=== PATIENT | female | born 1945 | race Hispanic/Latino ===

== ENCOUNTER → 2018-06-14 | Day surgery (SDC) | payer MEDICARE ==
[2018-06-12 14:26] LABS: BASOPHILS # (AUTO) 0.1 (0.0-0.1); EOSINOPHILS # (AUTO) 0.2 (0.0-0.4); EOSINOPHILS % 3.1 % (0.0-6.0); HEMATOCRIT 40.1 % (34.2-44.1); HEMOGLOBIN 13.2 g/dL (12.0-16.0); LYMPHOCYTES # (AUTO) 2.9 (1.0-3.2); LYMPHOCYTES % 40.8 % (18.0-39.1); MEAN CORPUSCULAR HEMOGLOBIN 31.2 pg (28-32); MEAN CORPUSCULAR HGB CONC 32.9 g/dL (31-35); MEAN CORPUSCULAR VOLUME 94.8 fL (81-99); MONOCYTES # (AUTO) 0.7 (0.2-0.8); MONOCYTES % 9.2 % (4.4-11.3); NEUTROPHILS # (AUTO) 3.2 (2.1-6.9); NEUTROPHILS % 45.6 % (38.7-80.0); PLATELET COUNT 180 x10e3/uL (140-360); RED BLOOD COUNT 4.23 x10e6/uL (3.6-5.1); RED CELL DISTRIBUTION WIDTH 14.2 % (11.7-14.4)
--- NOTE | 2018-06-12 14:46 | Diagnostic Imaging Report ---
EXAMINATION: CHEST 2 VIEWS INDICATION: Pre-op. COMPARISON: None FINDINGS: TUBES and LINES: None. LUNGS: Lungs are well inflated. There is mild patchy left basilar opacity, likely atelectasis. There is no evidence of pneumonia or pulmonary edema. PLEURA: No pleural effusion or pneumothorax. HEART AND MEDIASTINUM: The cardiomediastinal silhouette is unremarkable. There are atherosclerotic calcifications within the aorta. BONES AND SOFT TISSUES: No acute osseous abnormality. UPPER ABDOMEN: No free air under the diaphragm. IMPRESSION: No acute radiographic abnormality. Signed by: Dr. Pattie Zavala MD on 06/12/2018 2:43 PM
[~2018-06-14] MED LIST: ATORVASTATIN CA10 MG PO; CALTRATE 600 W1 EACH PO; CEFTRIAXONE SOD 1 GM/NS 50 ML 50 ML IV ONE; DEXAMETHASONE SOD PHOS INJ 4 MG/ML VIAL ONE; DORZOLAMIDE-TIM10 ML; FENTANYL CITRATE/PF 100MCG/2 ML INJ ONE; FOLIC ACID1 MG PO; GLUCOSAMINE1000 MG PO; IOPAMIDOL 610MG/1ML 300 MG/ML VIAL IV ONE; LEVOTHYROXINE50 MCG PO; LIDOCAINE HCL 2% LOCAL INJ 5 ML SDV VIAL INJ ONE; METHOTREXATE2.5 MG PO; MIDAZOLAM HCL 2 MG/2 ML VIAL ONE; ONDANSETRON HCL INJ 2MG/ML 2ML 2 MG/ML VIAL ONE; PREDNISONE10 MG PO; PROPOFOL IV EMULSION 10 MG/ML 20 ML VIAL ONE; SEVOFLURANE INHAL SOLN 250 ML PEN BTL ONE
--- OUTSIDE RECORDS SUMMARY | 2018-06-14 07:35 | XMS REPORT ---
Author Author [facility] Address Unknown Phone Unavailable Care Team Providers Care Water Safety Instructor Name Role Phone CRISTOPHER SHINE Unavailable Unavailable Problems This patient has no known problems. Allergies, Adverse Reactions, Alerts This patient has no known allergies or adverse reactions. Medications This patient has no known medications. Results Test Description Test Time Test Comments Text Results Atomic Results Result Comments CHEST 2 VIEWS 2018 14:38:00 [place] [address] Patient Name: ALICIA PABLO MR #: [id number] : 1945 Age/Sex: 73/F Req #: [id number] Adm Physician: Ordered by: CRISTOPHER SHINE MD Report #: [id number] Location: OR Room/Bed: Procedure: [id number] DX/CHEST 2 VIEWS Exam Date: 06/12/18 Exam Time: 1400 REPORT STATUS: Signed EXAMINATION: CHEST 2 VIEWS INDICATION: Pre-op. COMPARISON: None FINDINGS: TUBES and LINES: None. LUNGS: Lungs are well inflated. There is mild patchy left basilar opacity, likely atelectasis. There is no evidence of pneumonia or pulmonary edema. PLEURA: No pleural effusion or pneumothorax. HEART AND MEDIASTINUM: The cardiomediastinal silhouette is unremarkable. There are atherosclerotic calcifications within the aorta. BONES AND SOFT TISSUES: No acute osseous abnormality. UPPER ABDOMEN: No free air under the diaphragm. IMPRESSION: No acute radiographic abnormality. Signed by: Dr. Marlon Estevez MD on 2018 2:43 PM Dictated By: MARLON ESTEVEZ MD [id number] Transcribed By: ADRIANA on 06/12/18 1443 COPY TO: CRISTOPHER SHINE MD
--- OUTSIDE RECORDS SUMMARY | 2018-06-14 07:35 | XMS REPORT ---
Author Author Michelle Hernandez [facility] eClinicalWorks Address Unknown Phone Unavailable Care Team Providers Care Coffee Brewer Name Role Phone Michelle Hernandez CP Unavailable Allergies, Adverse Reactions, Alerts Substance Reaction Event Type methotre Info Not Available Non Drug Allergy Encounters Encounter Location Date 3m/grecia Phillip MD April 21, 2014 refill imsilva Phillip MD Oct 30, 2013 3m/grecia Phillip MD Feb 05, 2014 3m/grecia Phillip MD Nov 07, 2013 Problems Problem Type Condition ICD-9 Code Onset Dates Condition Status Problem Pain in joint, shoulder region 719.41 Active Problem 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 Problem Other and unspecified hyperlipidemia 272.4 Active Assessment 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 Problem Postmenopausal status (age-related) V49.81 Active Medications Medication Code System Code Instructions Start Date End Date Status Dosage [facility] [address] Orally Once a day Active 1 Capsule Aleve [facility] [address]-12 220 MG Orally every 12 hrs Active 2 tablets as needed Chlorophyll [facility] [address]10 10 MG Orally Once a day Active as directed Imuran [facility] [address]-24 50 MG orally as directed Active 2 tablets in the morning Glucosamine [facility] [address]-03 500 MG Orally Once a day Active 1 capsule with a meal Cosopt [facility] [address]-30 22.3-6.8 MG/ML Ophthalmic Twice a day Active 1 drop into affected eye Caltrate [facility] [address]-62 1500 MG Orally Twice a day Active 1 tablet with food Osteo Bi-Flex Adv Double St [facility] 05[address] Orally twice a day Active 1 Tablet Atorvastatin Calcium [facility] [address]-78 Once a day Active 1 Tablet Levothyroxin Unknown 0 0.05 PO Once a day Active 1 Tablet Social History Social History Element Qualifiers Date Reported Tobacco Use: . Are you a:: never smoker April 21, 2014 Marital Status: . April 21, 2014 Caffeine: no. April 21, 2014 Exercise: yes. Walking April 21, 2014 Alcohol: no. April 21, 2014 Occupation: . House April 21, 2014 Vital Signs Date/Time: April 21, 2014 Weight 173 lbs Height 61 in Temperature 98.4 F Cardiac Monitoring Heart Rate 72 /min Blood Pressure Diastolic 72 mm Hg Blood Pressure Systolic 124 mm Hg Results COMPREHENSIVE METABOLIC PANEL W/EGFR CALCIUM(-8.6-10.4 mg/dL) 9.3 CARBON DIOXIDE(-19-30 mmol/L) 29 ALT(-6-29 U/L) 13 CREATININE(-0.50-0.99 mg/dL) 0.79 AST(-10-35 U/L) 21 eGFR NON-AFR. SLOVENIAN(-> OR=60 mL/min/1.73m2) 77 ALKALINE PHOSPHATASE(-33-130 U/L) 88 eGFR (-> OR=60 mL/min/1.73m2) 90 BILIRUBIN, TOTAL(-0.2-1.2 mg/dL) 0.5 BUN/CREATININE RATIO(-6-22 (calc)) NOT APPLICABLE ALBUMIN/GLOBULIN RATIO(-1.0-2.5 (calc)) 1.6 SODIUM(-135-146 mmol/L) 139 GLOBULIN(-1.9-3.7 g/dL (calc)) 2.5 POTASSIUM(-3.5-5.3 mmol/L) 4.2 GLUCOSE(-65-99 mg/dL) 115 CHLORIDE(-98-110 mmol/L) 105 ALBUMIN(-3.6-5.1 g/dL) 3.9 UREA NITROGEN (BUN)(-7-25 mg/dL) 16 PROTEIN, TOTAL(-6.1-8.1 g/dL) 6.4 SED RATE BY MODIFIED WESTERGREN SED RATE BY MODIFIED WESTERGREN(-< OR=30 mm/h) 7 C-REACTIVE PROTEIN C-REACTIVE PROTEIN(-<0.80 mg/dL) <0.10 CBC (INCLUDES DIFF/PLT) MCHC(-32.0-36.0 g/dL) 33.9 MCH(-27.0-33.0 pg) 31.6 PLATELET COUNT(-140-400 Thousand/uL) 174 RDW(-11.0-15.0 %) 15.2 ABSOLUTE LYMPHOCYTES(-850-3900 cells/uL) 1454 ABSOLUTE MONOCYTES(-200-950 cells/uL) 356 ABSOLUTE NEUTROPHILS(-5945-7715 cells/uL) 2498 NEUTROPHILS(- %) 55.5 HEMATOCRIT(-35.0-45.0 %) 38.5 LYMPHOCYTES(- %) 32.3 MCV(-80.0-100.0 fL) 93.2 RED BLOOD CELL COUNT(-3.80-5.10 Million/uL) 4.13 ABSOLUTE EOSINOPHILS(-15-500 cells/uL) 149 ABSOLUTE BASOPHILS(-0-200 cells/uL) 45 HEMOGLOBIN(-11.7-15.5 g/dL) 13.1 BASOPHILS(- %) 1.0 WHITE BLOOD CELL COUNT(-3.8-10.8 Thousand/uL) 4.5 MONOCYTES(- %) 7.9 EOSINOPHILS(- %) 3.3 Summary Purpose eClinicalWorks Submission
--- OUTSIDE RECORDS SUMMARY | 2018-06-14 07:35 | XMS REPORT ---
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 Are you a:: never smoker Nov 07, 2013 Marital Status: . Nov 07, 2013 Caffeine: no. Nov 07, 2013 Exercise: yes. Walking Nov 07, 2013 Alcohol: no. Nov 07, 2013 Occupation: . House Nov 07, 2013 Summary Purpose eClinicalWorks Submission
--- OUTSIDE RECORDS SUMMARY | 2018-06-14 07:35 | XMS REPORT | Continuity of Care Document ---
Author Author [facility] Address Unknown Phone Unavailable Problems Problem Status Onset Date Classification Date Reported Comments Source Nonspecific reaction to tuberculin skin test without active tuberculosis Active Problem 06/11/2015 Pedro Phillip Other scleritis and episcleritis Active Problem 06/11/2015 Pedro Phillip Pain in joint, shoulder region Active Problem 06/11/2015 Pedro Phillip Positive KEVIN Active Diagnosis 06/11/2015 Pedro Phillip Postmenopausal status Active Problem 06/11/2015 Pedro Phillip Episcleritis Active Diagnosis 06/11/2015 Pedro Phillip Long-term use of other medications - High Risk Active Problem 06/11/2015 Pedro Phillip Other and unspecified hyperlipidemia Active Problem 06/11/2015 Pedro Phillip Lupus erythematosus Active Diagnosis 02/26/2014 Pedro Phillip Hypothyroidism Active Diagnosis 02/26/2014 Pedro Phililp Medications Medication Details Route Status Patient Instructions Ordering Provider Order Date Source Imuran 2 tablets in the morning and 1 tablet at nignt Orally Active 50 MG Orally once a day [place] 10/30/2013 Pedro Phillip [place] 3 1 Capsule Orally Active Orally Once a day [place] Pedro Phillip Gabapentin 1 tablet Orally Active 100 MG Orally at night [place] Pedro Phillip Caltrate 600 1 tablet with food Orally Active 1500 MG Orally Twice a day [place] Pedro Phillip Levothyroxin 1 Tablet PO Active 0.05 PO Once a day [place] Pedro Phillip Osteo Bi-Flex Adv Double St 1 Tablet Orally Active Orally twice a day [place] Pedro Phillip Atorvastatin Calcium 1 Tablet NA Active Once a day [place] Pedro Phillip Cosopt 1 drop into affected eye Ophthalmic Active 22.3-6.8 MG/ML Ophthalmic Twice a day [place] Pedro Phillip Glucosamine 1 capsule with a meal Orally Active 500 MG Orally Once a day [place] Pedro Phillip Aleve 2 tablets as needed Orally Active 220 MG Orally every 12 hrs [place] Pedro Phillip Chlorophyll as directed Orally Active 10 MG Orally Once a day [place] Pedro Phillip Imuran 2 tablets in the morning orally Active 50 MG orally as directed [place] Pedro Phillip Allergies, Adverse Reactions, Alerts Substance Category Reaction Severity Reaction type Status Date Reported Comments Source methotre Adverse Reaction Info Not Available Adverse Reaction Active 04/21/2014 Pedro Phillip Methotrexate Adverse Reaction Info Not Available Adverse Reaction Active 03/09/2015 Pedro Phillip Immunizations Immunization Date Given Site Status Last Updated Comments Source Results Order Name Results Value Reference Range Date Interpretation Comments Source Vital Signs Vital Sign Value Date Comments Source Weight 177 03/09/2015 Pedro Phillip Height 60 03/09/2015 Pedro Phillip Temperature Oral (F) 97.2 F 03/09/2015 Pedro Zhouer Heart Rate 72 03/09/2015 Pedro Phillip Diastolic (mm Hg) 80 03/09/2015 Pedro Phillip Systolic (mm Hg) 120 03/09/2015 Pedro Zhouer Weight 173 04/21/2014 Pedro Phillip Height 61 04/21/2014 Pedro Phillip Temperature Oral (F) 98.4 F 04/21/2014 Pedro Zhouer Heart Rate 72 04/21/2014 Pedro Phillip Diastolic (mm Hg) 72 04/21/2014 Pedro Phillip Systolic (mm Hg) 124 04/21/2014 Pedro Zhouer Weight 175 02/05/2014 Pedro Zhouer Height 61 02/05/2014 Pedro Phillip Temperature Oral (F) 96.6 F 02/05/2014 Pedro Zhouer Heart Rate 60 02/05/2014 Pedro Phillip Diastolic (mm Hg) 70 02/05/2014 Pedro Phillip Systolic (mm Hg) 130 02/05/2014 Pedro Phillip Encounters Location Location Details Encounter Type Encounter Number Reason For Visit Attending Provider ADM Date DC Date Status Source Adeel Phillip MD refill imuran [id number] 10/30/2013 10/30/2013 Pedro Phillip MD refill imuran [id number] 10/30/2013 10/30/2013 Pedro Phillip MD refill imuran [id number] 10/30/2013 10/30/2013 Pedro Phillip MD refill imuran [id number] 10/30/2013 10/30/2013 Pedro Phillip MD /fu [id number] 11/07/2013 11/07/2013 Pedro Phillip MD / [id number] 11/07/2013 11/07/2013 Pedro Phillip MD /fu [id number] 02/05/2014 02/05/2014 Pedro Phillip MD / [id number] 02/05/2014 02/05/2014 Pedro Phillip MD /fu [id number] 02/05/2014 02/05/2014 Pedro Phillip MD / [id number] 04/21/2014 04/21/2014 Pedro Phillip MD / [id number] 04/21/2014 04/21/2014 Pedro Phillip MD /fu [id number] 08/10/2014 08/10/2014 Pedro Phillip MD /fu [id number] 11/10/2014 11/10/2014 Pedro Phillip MD 3 MTH FU [id number] 03/09/2015 03/09/2015 Pedro Phillip Procedures Procedure Code Date Perfomer Comments Source
--- OUTSIDE RECORDS SUMMARY | 2018-06-14 07:35 | XMS REPORT ---
Author Author Tommy Collado [facility] eClinicalWorks Address Unknown Phone Unavailable Care Team Providers Care Certified Nurse Operating Room Name Role Phone Tommy Collado Unavailable Allergies, Adverse Reactions, Alerts Substance Reaction Event Type methotre Info Not Available Non Drug Allergy Encounters Encounter Location Date refill imuran Adeel Phillip MD Oct 30, 2013 3m/fu Adeel Phillip MD Feb 05, 2014 Problems Problem Type Condition ICD-9 Code Onset Dates Condition Status Assessment Lupus erythematosus 695.4 Active Assessment Other and unspecified hyperlipidemia 272.4 Active Assessment Hypothyroidism 244.9 Active Problem Pain in joint, shoulder region 719.41 Active Problem 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 Problem Other and unspecified hyperlipidemia 272.4 Active Assessment 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 Assessment Long-term (current) use of other medications - High Risk V58.69 Active Problem 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 Problem Postmenopausal status (age-related) V49.81 Active Medications Medication Code System Code Instructions Start Date End Date Status Dosage Glucosamine [facility] [address]-33 500 MG Orally Once a day Active 1 capsule with a meal Levothyroxin Unknown 0 0.05 PO Once a day Active 1 Tablet Osteo Bi-Flex Adv Double St [facility] [address] Orally twice a day Active 1 Tablet Atorvastatin Calcium [facility] [address]-23 Once a day Active 1 Tablet Cosopt [facility] [address]-46 22.3-6.8 MG/ML Ophthalmic Twice a day Active 1 drop into affected eye [place] 3 [facility] [address] Orally Once a day Active 1 Capsule Caltrate 600 [facility] [address]-38 1500 MG Orally Twice a day Active 1 tablet with food Aleve [facility] [address]-66 220 MG Orally every 12 hrs Active 2 tablets as needed Chlorophyll [facility] [address]24 10 MG Orally Once a day Active as directed Imuran [facility] [address]-36 50 MG orally as directed Active 2 tablets in the morning Social History Social History Element Qualifiers Date Reported Tobacco Use: . Are you a:: never smoker Feb 05, 2014 Marital Status: . Feb 05, 2014 Caffeine: no. Feb 05, 2014 Exercise: yes. Walking Feb 05, 2014 Alcohol: no. Feb 05, 2014 Occupation: . House Feb 05, 2014 Vital Signs Date/Time: Feb 05, 2014 Weight 175 lbs Height 61 in Temperature 96.6 F Cardiac Monitoring Heart Rate 60 /min Blood Pressure Diastolic 70 mm Hg Blood Pressure Systolic 130 mm Hg Results COMPREHENSIVE METABOLIC PANEL W/EGFR CALCIUM(-8.6-10.4 mg/dL) 9.3 CARBON DIOXIDE(-19-30 mmol/L) 25 ALT(-6-29 U/L) 16 CREATININE(-0.50-0.99 mg/dL) 0.75 AST(-10-35 U/L) 23 eGFR NON-AFR. GUAMANIAN(-> OR=60 mL/min/1.73m2) 82 ALKALINE PHOSPHATASE(-33-130 U/L) 85 eGFR (-> OR=60 mL/min/1.73m2) 96 BILIRUBIN, TOTAL(-0.2-1.2 mg/dL) 0.7 BUN/CREATININE RATIO(-6-22 (calc)) NOT APPLICABLE ALBUMIN/GLOBULIN RATIO(-1.0-2.5 (calc)) 1.6 SODIUM(-135-146 mmol/L) 139 GLOBULIN(-1.9-3.7 g/dL (calc)) 2.5 POTASSIUM(-3.5-5.3 mmol/L) 4.3 GLUCOSE(-65-99 mg/dL) 112 CHLORIDE(-98-110 mmol/L) 106 ALBUMIN(-3.6-5.1 g/dL) 4.0 UREA NITROGEN (BUN)(-7-25 mg/dL) 14 PROTEIN, TOTAL(-6.1-8.1 g/dL) 6.5 CBC (INCLUDES DIFF/PLT) ABSOLUTE BASOPHILS(-0-200 cells/uL) 43 MCV(-80.0-100.0 fL) 93.1 HEMATOCRIT(-35.0-45.0 %) 40.0 ABSOLUTE EOSINOPHILS(-15-500 cells/uL) 109 MCHC(-32.0-36.0 g/dL) 33.0 ABSOLUTE MONOCYTES(-200-950 cells/uL) 386 MCH(-27.0-33.0 pg) 30.7 ABSOLUTE LYMPHOCYTES(-850-3900 cells/uL) 1240 EOSINOPHILS(- %) 2.8 WHITE BLOOD CELL COUNT(-3.8-10.8 Thousand/uL) 3.9 MONOCYTES(- %) 9.9 LYMPHOCYTES(- %) 31.8 HEMOGLOBIN(-11.7-15.5 g/dL) 13.2 NEUTROPHILS(- %) 54.4 RED BLOOD CELL COUNT(-3.80-5.10 Million/uL) 4.30 ABSOLUTE NEUTROPHILS(-6332-0594 cells/uL) 2122 BASOPHILS(- %) 1.1 RDW(-11.0-15.0 %) 15.2 PLATELET COUNT(-140-400 Thousand/uL) 189 TSH, 3RD GENERATION W/REFLEX TO FT4 TSH W/REFLEX TO FT4(-0.40-4.50 mIU/L) 1.60 LIPID PANEL NON HDL CHOLESTEROL(- mg/dL (calc)) 98 LDL-CHOLESTEROL(-<130 mg/dL (calc)) 78 CHOL/HDLC RATIO(-< OR=5.0 (calc)) 3.2 HDL CHOLESTEROL(-> OR=46 mg/dL) 45 TRIGLYCERIDES(-<150 mg/dL) 101 CHOLESTEROL, TOTAL(-125-200 mg/dL) 143 SED RATE BY MODIFIED WESTERGREN SED RATE BY MODIFIED WESTERGREN(-< OR=30 mm/h) 10 C-REACTIVE PROTEIN C-REACTIVE PROTEIN(-<0.80 mg/dL) <0.10 Summary Purpose eClinicalWorks Submission
--- OUTSIDE RECORDS SUMMARY | 2018-06-14 07:35 | XMS REPORT ---
Author Author Michelle Hernandez [facility] eClinicalWorks Address Unknown Phone Unavailable Care Team Providers Care Interior Design Director Name Role Phone Michelle Hernandez Unavailable Allergies, Adverse Reactions, Alerts Substance Reaction Event Type Methotrexate Info Not Available Non Drug Allergy Encounters Encounter Location Date 3m/yvonne Phillip MD April 21, 2014 3m/yvonne Phillip MD August 10, 2014 3m/yvonne Phillip MD Nov 10, 2014 3 [facility] YVONNE Phillip MD Mar 09, 2015 refill imuran Adeel Phillip MD Oct 30, 2013 3m/yvonne Phillip MD Feb 05, 2014 3m/yvonne Phillip MD Nov 07, 2013 Problems Problem Type Condition ICD-9 Code Onset Dates Condition Status Assessment Positive KEVIN (antinuclear antibody) R76.8 Active Problem Postmenopausal status (age-related) V49.81 Active Assessment 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 Active Problem Positive KEVIN (antinuclear antibody) R76.8 Active Problem Long-term (current) use of other medications - High Risk V58.69 Active Problem 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 Active Problem 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 Problem 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 Problem Other and unspecified hyperlipidemia 272.4 Active Problem Pain in joint, shoulder region 719.41 Active Medications Medication Code System Code Instructions Start Date End Date Status Dosage [place] 3 MEDISPAN [address] Orally Once a day Active 1 Capsule [facility] [address]-82 100 MG Orally at night Active 1 tablet Caltrate 600 [facility] [address]-06 1500 MG Orally Twice a day Active 1 tablet with food Levothyroxin Unknown 0 0.05 PO Once a day Active 1 Tablet Osteo Bi-Flex Adv Double [facility] [address] Orally twice a day Active 1 Tablet Atorvastatin [facility] [address]-51 Once a day Active 1 Tablet Cosopt [facility] [address]-47 22.3-6.8 MG/ML Ophthalmic Twice a day Active 1 drop into affected eye Social History Social History Element Qualifiers Date Reported Tobacco Use: . Are you a:: never smoker Mar 09, 2015 Marital Status: . Mar 09, 2015 Caffeine: no. Mar 09, 2015 Exercise: yes. Walking Mar 09, 2015 Alcohol: no. Mar 09, 2015 Occupation: . House Mar 09, 2015 Vital Signs Date/Time: Mar 09, 2015 Weight 177 lbs Height 60 in Temperature 97.2 F Cardiac Monitoring Heart Rate 72 /min Blood Pressure Diastolic 80 mm Hg Blood Pressure Systolic 120 mm Hg Summary Purpose eClinicalWorks Submission
[2018-06-14 09:55] VITALS: BP 125/75
--- NOTE | 2018-06-14 17:25 | Operative Report ---
DATE OF PROCEDURE: 06/14/2018 SURGEON: Willie Clarke MD PREOPERATIVE DIAGNOSES: 1. Multiple chronic urinary tract infections. 2. Clinical signs and symptoms of interstitial cystitis. POSTOPERATIVE DIAGNOSES: 1. Multiple chronic urinary tract infections. 2. Clinical signs and symptoms of interstitial cystitis. PROCEDURES: 1. Cystourethroscopy with hydrodistention (entirely separate procedure for clinical signs and symptoms of interstitial cystitis). 2. Cystourethroscopy with left ureteral catheterization and left retrograde pyelogram (separate procedure for multiple chronic urinary tract infections). 3. Cystourethroscopy with right ureteral catheterization and right retrograde pyelogram (separate procedure for multiple chronic urinary tract infections). 4. Supervision of fluoroscopy. 5. Interpretation of retrograde pyelography. ANESTHESIA: General. ESTIMATED BLOOD LOSS: Minimal. COMPLICATIONS: None. INDICATIONS FOR PROCEDURE: Ms. Mathias is a 73-year-old female with history of multiple chronic urinary tract infections. She had a long discussion regarding alternatives, risks and benefits, including doing nothing, cystoscopy, IVP, retrograde pyelogram, renal ultrasound, hydrodistention. She voiced understanding of the options, the alternatives, the risks, and the benefits and she elected to proceed. PROCEDURE IN DETAIL: After informed consent was obtained, the patient was taken to the operative suite. She was placed supine on the operating table. She underwent general anesthesia by Anesthesia Service. She was placed in dorsal supine position and sterilely prepped and draped in standard fashion for cystoscopy. Grade 2-3 cystocele was noted and severe vaginal atrophy. A 21-British cystoscope was inserted per urethra and normal bladder was noted. Panendoscopy of the bladder revealed no tumors and no stones. Both ureteral orifices were in normal anatomic location and seen to efflux clear urine. Hydrodistention was performed, revealed a capacity of 800 mL, no glomerulations, no Hunner's ulcers. The bladder was then drained. The patient was awakened from anesthesia and transferred to the recovery room in excellent condition. Supervision of fluoroscopy and interpretation of retrograde pyelography: I was present for the entire procedure and I supervised the fluoroscopy as no radiologist was present. Attention was turned towards left and right ureters which were catheterized with an 8-British cone-tipped catheter in retrograde fashion. 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 Impression, normal retrograde pyelograms. MD ROSA Baig/COLIN /[id number] MTDD
--- NOTE | 2018-06-14 21:41 | Operative Report ---
DATE OF PROCEDURE: SURGEON: Willie Clarke MD NO DICTATION MD ROSA Baig/MODL /[id number]
== END | disposition home or self-care (01) ==
LOC: OR 07:32
PROVIDERS: ATTEND Urology
DX: N39.0 Urinary tract infection, site not specified (principal); N81.10 Cystocele, unspecified; N95.2 Postmenopausal atrophic vaginitis; E78.5 Hyperlipidemia, unspecified; Z01.810 Encounter for preprocedural cardiovascular examination; Z01.812 Encounter for preprocedural laboratory examination; Z01.818 Encounter for other preprocedural examination
CPT/HCPCS: 36415; 52005; 71046; 74420; 85025; 93005; C1758; J0696; J1100; J2001; J2250; J2405; J2704; Q9967

== ENCOUNTER → 2022-03-22 | Day surgery (SDC) | payer MEDICARE, OTHER ==
[~2022-03-22] MED LIST changes: -CEFTRIAXONE SOD 1 GM/NS 50 ML 50 ML IV ONE; -DEXAMETHASONE SOD PHOS INJ 4 MG/ML VIAL ONE; -FENTANYL CITRATE/PF 100MCG/2 ML INJ ONE; +GLAUCOMA DROPS OU; +HUMIRA40 MG/0.8 SC; +HYOSCYAMINE SULFATE 0.5 MG/ML INJ ONE; -IOPAMIDOL 610MG/1ML 300 MG/ML VIAL IV ONE; +LOSARTAN POTASS25 MG PO; +LYRICA50 MG PO; -MIDAZOLAM HCL 2 MG/2 ML VIAL ONE; -ONDANSETRON HCL INJ 2MG/ML 2ML 2 MG/ML VIAL ONE; -SEVOFLURANE INHAL SOLN 250 ML PEN BTL ONE
[2022-03-22 09:00] VITALS: BP 116/80
== END | disposition home or self-care (01) ==
LOC: OR 06:08
PROVIDERS: ATTEND Internal Medicine Gastroenterology
DX: K52.9 Noninfective gastroenteritis and colitis, unspecified (principal); D12.2 Benign neoplasm of ascending colon; D12.3 Benign neoplasm of transverse colon; K64.8 Other hemorrhoids; Z71.3 Dietary counseling and surveillance; I10 Essential (primary) hypertension; M06.9 Rheumatoid arthritis, unspecified; E78.00 Pure hypercholesterolemia, unspecified; E03.9 Hypothyroidism, unspecified; H40.9 Unspecified glaucoma; M19.90 Unspecified osteoarthritis, unspecified site; M54.9 Dorsalgia, unspecified; Z79.899 Other long term (current) drug therapy; Z68.32 Body mass index [BMI] 32.0-32.9, adult; Z80.0 Family history of malignant neoplasm of digestive organs
CPT/HCPCS: 45378; 45380; J1980; J2001

== ENCOUNTER → 2024-12-04 | Outpatient (REF) | payer MEDICARE ==
[~2024-12-04] MED LIST changes: -HYOSCYAMINE SULFATE 0.5 MG/ML INJ ONE; -LIDOCAINE HCL 2% LOCAL INJ 5 ML SDV VIAL INJ ONE; -PROPOFOL IV EMULSION 10 MG/ML 20 ML VIAL ONE
== END ==
LOC: RAD 11:04
PROVIDERS: ATTEND Nurse Practitioner Family
DX: R06.09 Other forms of dyspnea (principal); R07.89 Other chest pain; G47.33 Obstructive sleep apnea (adult) (pediatric); M06.9 Rheumatoid arthritis, unspecified; E66.9 Obesity, unspecified
CPT/HCPCS: 71046